=== PATIENT | male | born 1960 | race Caucasian/White ===

== ENCOUNTER → 2016-12-20 | Day surgery (SDC) | payer BC ==
[~2016-12-20] MED LIST: Lactated Ringers 1,000 ML IV SCH; Propofol 200 MG/20 ML SDV IV ONE
[2016-12-20 13:08] VITALS: BP 119/82
--- NOTE | 2016-12-23 07:15 | OR ---
DATE OF OPERATION: 12/20/2016 PREOPERATIVE DIAGNOSIS: SCREENING COLONOSCOPY. POSTOPERATIVE DIAGNOSIS: SCREENING COLONOSCOPY. SURGEON: Felipe Brown MD PROCEDURE: FULL-LENGTH COLONOSCOPY WITH SNARE POLYPECTOMY X2. ANESTHESIA: [employer] due to hypertension and history of alcohol abuse. COMPLICATIONS: None. SPECIMEN: Two tubular adenomas. FINDINGS: 1. Full-length colonoscopy. 2. Tubular adenomas x2. RECOMMENDATIONS: Follow up colonoscopy in 3 years. INDICATIONS: The patient was in for a physical with Jack Alves. Screening colonoscopy was advised. DESCRIPTION OF PROCEDURE: The patient was prepped and draped, placed in the left lateral decubitus position. A lubricated Olympus colonoscope was inserted and easily advanced to the cecum. Direct visualization of the ileocecal valve and appendiceal orifice was accomplished. The bowel prep was adequate. Upon withdrawal of the scope, the cecum, ascending, and transverse colon were completely benign as was the descending colon. In the sigmoid colon, the patient had a stalked quite large tubular adenoma, almost a 0.5 cm in size, easily removed with a small snare and suctioned into polyp trap #1. The rest of the sigmoid showed no signs of any other polyps, mass, ulceration, or bleeding sites. No vascular abnormalities or signs of colitis. There were no diverticula seen. In the rectal vault, the patient had a 2nd tubular adenoma, also reasonably large, just under 0.5 cm, it was removed with a snare and suctioned into polyp trap #2. Retroflexing the scope in the rectum showed no perianal lesions. Air was then suctioned. The scope was removed without complication. VI/SONU /[id number]
== END ==
LOC: CC.SDS 11:14
PROVIDERS: ATTEND Family Medicine
DX: Z12.11 Encounter for screening for malignant neoplasm of colon (principal); D12.5 Benign neoplasm of sigmoid colon; D12.8 Benign neoplasm of rectum; E78.5 Hyperlipidemia, unspecified; M79.1 Myalgia; Z98.890 Other specified postprocedural states; Z79.899 Other long term (current) drug therapy
CPT/HCPCS: 45385; J2704; J7120

== ENCOUNTER → 2020-08-04 | Day surgery (SDC) | payer BC ==
[2020-08-04] MEDS: Lactated Ringers 1,000 ML IV SCH (09:44)
[2020-08-04 11:29] VITALS: BP 128/78; PULSE 60
--- NOTE | 2020-08-07 07:05 | OR ---
DATE OF OPERATION: 08/04/2020 PREOPERATIVE DIAGNOSIS: 1. HEME-POSITIVE STOOL. 2. HISTORY OF POLYPS. POSTOPERATIVE DIAGNOSIS: 1. HEME-POSITIVE STOOL. 2. HISTORY OF POLYPS. SURGEON: Felipe Brown MD PROCEDURE: 1. DIAGNOSTIC ESOPHAGOGASTRODUODENOSCOPY WITH BIOPSIES X5, JUAN ALBERTO. 2. FULL-LENGTH DIAGNOSTIC COLONOSCOPY WITH FORCEPS POLYP REMOVAL X2. ANESTHESIA: MAC. COMPLICATIONS: None. SPECIMEN: 1. Duodenal bulb biopsy x1. 2. Antral biopsy x2. 3. Antral JUAN ALBERTO. 4. Fundal biopsy x1. 5. Distal esophageal biopsy x1. 6. Two small tubular adenomas, 3 mm, colon. 7. Two colon polyps. FINDINGS: 1. Full-length diagnostic EGD. 2. Mild duodenitis, duodenal bulb. 3. Diffuse gastritis. 4. Small hiatal hernia with spontaneous GERD. 5. Short-segment Mandujano's changes. 6. Full-length diagnostic colonoscopy. 7. Two small tubular adenomas, 3 mm. RECOMMENDATIONS: The patient should have a followup colonoscopy in 5 years. We will put him on proton pump therapy for his peptic ulcer disease and discuss strategies to improve his GERD. INDICATIONS: The patient was in for a routine physical. He was found to have heme-positive stool. He was due for a followup colonoscopy for polyps and we elected to proceed with EGD as the patient admits to GERD. DESCRIPTION OF PROCEDURE: The patient was prepped and draped, placed in the left lateral decubitus position. A lubricated Olympus gastroscope was inserted over a bit, advanced to cricopharyngeus area, and easily intubated into the esophagus. The esophageal lining was benign until its most distal portion. The Z-line is around 40 cm, but he does have a small hernia and spontaneous reflux seen. There was 1 short-segment Mandujano's area which was biopsied. No ulcerations or bleeding. No stricturing. The scope was advanced into the stomach, through the pylorus, and into the second portion of the duodenum. This was benign. The duodenal bulb had some mild duodenitis which was biopsied. The scope was brought back into the stomach and retroflexed. The upper fundus and cardia were unremarkable other than the hernia which could be seen from below. The mid body of the fundus and the rest of the antrum had diffuse gastritis. He had 1 small little erosion around the pylorus. We did do a biopsy of that and another area of the antrum along with a fundal biopsy. CLOtest was obtained. Air was then suctioned. The scope removed without complication. A lubricated Olympus colonoscope was then inserted and with ease advanced to the cecum. The bowel prep was excellent. We were able to directly visualize the ileocecal valve and appendiceal orifice. Upon withdrawal, the cecum, ascending and transverse colons appeared benign. In the mid sigmoid colon, the patient had a small 2 to 3 mm flat tubular adenoma which was removed with a forceps biopsy x2. There was a second polyp in the rectosigmoid area, also removed with forceps biopsy x2, measuring approximately 3 mm as well. There were no signs of any active colitis, bleeding sites, or worrisome lesions. The rectal vault appeared benign. Retroflexion showed some minimal perianal hemorrhoid disease. Air was suctioned and the scope removed without complication. VI/SONU /[id number]
== END ==
LOC: CC.SDS 09:31
PROVIDERS: ATTEND Family Medicine
DX: D12.5 Benign neoplasm of sigmoid colon (principal); K62.1 Rectal polyp; K20.90 Esophagitis, unspecified without bleeding; K29.90 Gastroduodenitis, unspecified, without bleeding; K44.9 Diaphragmatic hernia without obstruction or gangrene; K22.70 Barrett's esophagus without dysplasia; K21.9 Gastro-esophageal reflux disease without esophagitis; F17.210 Nicotine dependence, cigarettes, uncomplicated; I10 Essential (primary) hypertension; E78.5 Hyperlipidemia, unspecified; E53.8 Deficiency of other specified B group vitamins; N40.0 Benign prostatic hyperplasia without lower urinary tract symptoms; Z79.899 Other long term (current) drug therapy; Z79.82 Long term (current) use of aspirin
CPT/HCPCS: 43239; 45380; 87081; J7120; 00813

== ENCOUNTER 2021-03-19 16:41 | Observation (INO) | payer BC ==
[2021-03-19] MEDS ORDERED: Acetaminophen 325 MG Tab PO PRN (17:27)
[2021-03-19] MEDS ORDERED: Ondansetron 4 MG/2 ML SDV IV PRN (17:27)
[2021-03-19] MEDS: Nicotine 14 MG/24 Hr Patch TRDERM SCH (18:19)
[2021-03-19 18:40] LABS: CHLORIDE,CL 99 mEq/L (98-106); SODIUM,NA 138 mEq/L (136-145)
[2021-03-19] MEDS: Sodium Chloride 0.9% 1,000 ML IV SCH (20:31)
[2021-03-20] MEDS: Sodium Chloride 0.9% 1,000 ML IV SCH (05:08)
[2021-03-20] MEDS ORDERED: amLODIPine 10 MG Tab PO SCH (08:00)
[2021-03-20] MEDS ORDERED: atorvaSTATin 20 MG Tab PO SCH (08:00)
[2021-03-20] MEDS ORDERED: Pantoprazole 40 MG Tab.CR PO SCH (08:00)
[2021-03-20] MEDS ORDERED: Aspirin 81 MG Tab.EC PO SCH (08:00)
[2021-03-20] MEDS ORDERED: Potassium Chloride 10 MEQ Tab.ER PO SCH ×2 (08:00)
[2021-03-20] MEDS: Nicotine 14 MG/24 Hr Patch TRDERM SCH (08:19)
[2021-03-20 09:57] VITALS: BP 142/52; PULSE 72
--- NOTE | 2021-03-20 11:21 | DISCH ---
ADMISSION DIAGNOSES: 1. Acute vertigo, peripheral nature. 2. Lightheadedness. 3. Hypertension. DISCHARGE DIAGNOSIS: 1. BENIGN PAROXYSMAL POSITIONAL VERTIGO. 2. HYPERTENSION. 3. HYPERLIPIDEMIA. 4. TYPE 2 DIABETES REQUIRING INSULIN. 5. HYPOKALEMIA. HISTORY: The patient is a well-known 60-year-old who presented to me with acute onset of what appeared to be vertigo. He had some symptoms of lightheadedness and faintness, but the majority of his complaints appear to be spinning when he would get up out of a seated position or arise, it was not so much with head turning albeit slightly less. We did a CT of his head which was negative. We elected to put him in the hospital for IV fluids and Zofran, have PT team for canalith repositioning. HOSPITAL COURSE: The patient did well while here for the most part, he had no troubles at all. The majority of his workup was negative. He was little hypokalemic from his lisinopril/HCTZ. We have started him on oral potassium replacement. His magnesium was normal. Has not had any vertigo since he fell asleep last night. We will give him a prescription for potassium and some Zofran and I will see him in the clinic in couple of weeks for followup. He does understand that if he has vertigo starts to return, he can use Zofran p.r.n. and/or go to physical therapy for canalith repositioning. COMPLICATIONS: During his stay were none. CONSULTATIONS: None. DISPOSITION: Discharged home. YOVANI /[id number]
== END 2021-03-20 11:45 | disposition home or self-care (01) ==
LOC: UNDOADMOB 16:41 → CC.MS 16:41
PROVIDERS: ADMIT Family Medicine; ATTEND Family Medicine
DX: H81.10 Benign paroxysmal vertigo, unspecified ear (principal); H81.399 Other peripheral vertigo, unspecified ear; N40.0 Benign prostatic hyperplasia without lower urinary tract symptoms; E78.5 Hyperlipidemia, unspecified; K21.00 Gastro-esophageal reflux disease with esophagitis, without bleeding; I10 Essential (primary) hypertension; F17.210 Nicotine dependence, cigarettes, uncomplicated; E11.9 Type 2 diabetes mellitus without complications; E87.6 Hypokalemia; Z79.899 Other long term (current) drug therapy; Z79.82 Long term (current) use of aspirin; Z98.890 Other specified postprocedural states
CPT/HCPCS: 36415; 70450; 80053; 83735; 84484; 85025; 93005; A9270-GY; G0378; J7030